=== PATIENT | female | born 1985 | race African-American/Black ===

== ENCOUNTER 2023-04-23 10:29 | Emergency (ER) | payer OTHER, SELFPAY ==
[2023-04-23] VITALS (7 sets, daily range): BP systolic 109–152; BP diastolic 75–102
[2023-04-23 11:39] LABS: Glucose - Point of Care 80 mg/dl (70-99)
--- NOTE | 2023-04-23 12:13 | ED.GENMED ---
History of Present Illness
General
Chief Complaint: Dizziness
Source: patient
Exam Limitations: none
Time Seen by Provider: 04/23/23 12:12
Travel History
Have you had any contact with someone who has COVID-19?: No
Do you have any symptoms of coronavirus? Fever > 100 degrees, chills, cough, shortness of breath, sore throat, loss of taste or smell, muscle aches, or headache?: No
History of Present Illness
History of Present Illness:
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 No trauma. No chest pain or shortness of breath. Feels fine now. Blood sugar was 84 but this was after 3 to 4 ounces of orange juice. Has a
history of hyperglycemia in the past. Currently asymptomatic
Past History
Past History
ED Past Medical History: Psychiatric (Anxiety)
ED Past Surgical History: Other (Gastric sleeve)
Review of Systems
Review of Systems
All Other Systems: Not applicable
Constitutional: Denies fever
Respiratory: Denies trouble breathing
Cardiac: Denies chest pain or palpitations
Phy Exam
Physical Exam
Physical Exam:
GENERAL: Alert and oriented in no apparent distress
EYE: Orbits normal.
NECK: Supple, no significant adenopathy.
ENT: Pharynx without erythema
CARDIAC: Regular rate and rhythm without any obvious murmurs.
LUNGS: Clear breath sounds,normal
ABDOMEN: Soft, without focal tenderness or distention
NEUROLOGICAL: Alert and oriented , grossly non-focal
SKIN: Warm and dry, no rash or lesion, no discoloration, skin intact.
MUSCULOSKELETAL: No edema,no deformity.Good color
PSYCH: Normal and appropriate interaction.
Course
Orders/Labs/Results
Orders:
Orders
04/23/23 10:55
ECG [Electrocardiogram (*1)] Urgent
Reason for Study: Vertigo / Dizzy
EKG- Treatment ONCE
04/23/23 12:27
Cardiac Monitoring- Treatment ONCE
IV Insert/Care/Rem.- Treatment PRN
0.9% Sodium Chloride 1000 ml [Nss] 1,000 ml IV BOLUS
Test Result ONCE
Pulse Ox/cont/shift [RESP] Stat
Quantity: 1
04/23/23 12:46
Complete Blood Count/With Diff Urgent
04/23/23 13:20
Basic Metabolic Panel Routine
HCG, Serum Qualitative Screen Routine
04/23/23 12:46
04/23/23 13:20
Vital Signs
Initial and Last Documented VS:
Initial Vital Signs
Temp Pulse Resp BP Pulse Ox
97.7 F 78 18 152/102 99
04/23/23 10:50 04/23/23 10:50 04/23/23 10:50 04/23/23 10:50 04/23/23 10:50
Last Documented Vital Signs
Temp Pulse Resp BP Pulse Ox
97.7 F 94 17 109/94 99
04/23/23 10:50 04/23/23 13:30 04/23/23 13:45 04/23/23 13:20 04/23/23 13:30
*Pulse Oximetry
Patient hypoxic: no
*EKG
Interpreted by ED Provider?: Yes
Interpretation: normal
Comparison EKG: no comparison EKG present
Heart Rate: 72
Rate: normal
Rhythm: sinus
[place]: normal axis
Interval: normal interval
QRS Pattern: normal QRS
Ischemia: no ischemia
*Junior Assistant Manager Interpretation
Rate: normal
Interpretation: normal
Heart Rate: 74
Rhythm: sinus
*Critical Care Note
Total Time (30-74mins, 75-104mins- exclusive of procedures): Not Applicable
Update Note
Update Note:
Patient standing in the room in no distress. Stable. Prodromal near syncope versus hypoglycemia. Stable for discharge to follow-up
ED Attending Note
-
Portions of this chart may have been created with voice recognition software.� Occasional wrong word or��sound alike� substitutions may have occurred due to the inherent limitations of voice recognition software.
Discharge Plan
Departure
Patient Disposition: Home (Routine Discharge)
Date of Disposition: 04/23/23
Time of Disposition: 13:58
Patient with high blood pressure during this ER visit?: Yes
Discharge Problem:
Near syncope versus transient hypoglycem
Instructions: Low Blood Sugar, Adult (DC), Near Fainting (DC), BLOOD PRESSURE
Referrals:
UNKNOWN - PT DOES,NOT KNOW [Family Provider] -
Activity Restrictions/Additional Instructions:
Follow-up closely with your physician in the next 2 to 3 days
Interventions
Interventions:
*Risk Screen - Suicide Last Done: 04/23/23 10:50
*General Assessment Last Done: 04/23/23 10:50
*Neglect/Abuse Screening Last Done: 04/23/23 10:50
*ED COVID-19 Vaccine History Last Done: 04/23/23 11:02
ED- Neurological Assessment Last Done: 04/23/23 11:34
ED Swallowing Screen Last Done: 04/23/23 11:34
[2023-04-23] MEDS: NSS 1000 IV (12:47)
[2023-04-23 12:58] LABS: % Basophils 0.5 % (0-2); % Eosinophils 0.7 % (0-6); % Immature Granulocytes 0.3 % (0-0.5); % Lymphocytes 31.2 % (20.5-51.1); % Monocytes 7.6 % (1.7-9.3); % Neutrophils 59.7 % (42.2-75.2); Absolute Eosinophils 0.1 10^3/uL (0-0.7); Absolute Lymphocytes 2.4 10^3/uL (1.2-3.4); Absolute Monocytes 0.6 10^3/uL (0.1-0.6); Absolute Neutrophils 4.6 10^3/uL (1.4-6.5); Hematocrit 37.8 % (37.0-47.0); Mean Corp Hgb Conc. 34.4 g/dL (33.0-37.0); Mean Corpuscular Hgb 29.3 pg (27.0-31.0); Mean Corpuscular Volume 85.1 fL (81.0-99.0); Mean Platelet Volume 9.7 fL (7.4-10.4); Nucleated Red Blood Cells % 0 %; Platelet Count 253 10^3/uL (130-400); Red Blood Cell Count 4.44 10^6/uL (4.20-5.40); White Blood Cell Count 7.6 10^3/uL (4.8-10.8)
[2023-04-23 13:43] LABS: HCG, Serum Qualitative Screen Negative
[2023-04-23 13:46] LABS: Blood Urea Nitrogen 12 mg/dl (7-17); Calcium 8.6 mg/dl (8.4-10.2); Carbon Dioxide 25 mmol/L (22-30); Chloride 105 mmol/L (98-107); Glucose 85 mg/dl (70-99); Potassium 3.7 mmol/L (3.5-5.1); Sodium 137 mmol/L (135-145); eGFR > 60.00
== END 2023-04-23 14:13 | disposition home or self-care (01) ==
LOC: EMR 10:29
PROVIDERS: EMERGENCY PHYSICIAN Emergency Medicine
DX: R55 Syncope and collapse (principal); R03.0 Elevated blood-pressure reading, without diagnosis of hypertension; F41.9 Anxiety disorder, unspecified; R73.9 Hyperglycemia, unspecified
CPT/HCPCS: 99285; 96360; 94760; 80048; 82962; 84703; 85025; 93005